=== PATIENT | female | born 1985 | race Caucasian/White ===

== ENCOUNTER → 2016-03-24 | Outpatient (CLI) | payer BC ==
[~2016-03-24] MED LIST: PRENTAB26 PO
[2016-03-24 12:47] LABS: URINE APPEARANCE CLEAR (CLEAR); URINE BILIRUBIN NEG (NEG); URINE COLOR YELLOW; URINE NITRITE NEG (NEG); URINE PH 5.5 (4.5-7.5); URINE SPECIFIC GRAVITY 1.005 (1.000-1.030); UROBILINOGEN NEG (NEG)
[2016-03-24 12:56] LABS: MANUAL MICROSCOPIC REQUIRED? NO; REVIEW REQ? NO
== END | disposition home or self-care (01) ==
LOC: C.LABSPEC 12:02
PROVIDERS: ATTEND Obstetrics & Gynecology
DX: Z34.00 Encounter for supervision of normal first pregnancy, unspecified trimester (principal)

== ENCOUNTER → 2016-03-31 | Outpatient (CLI) | payer BC ==
[2016-03-31 18:01] LABS: BASO % 0.3 %; BASO ABS # 0.03 K/uL (0-0.2); COMPLETE YES; EOS % 0.9 %; IG% 0.3 %; LYMPH % 15.7 %; LYMPH ABS # 1.55 K/uL (1.2-3.4); MEAN CELL VOLUME 89.6 fL (80-100); MEAN CORPUSCULAR HEMOGLOBIN 30.8 pg (25-34); MEAN CORPUSCULAR HGB CONC 34.4 g/dl (32-36); MEAN PLATELET VOLUME 10.9 fL (7.4-10.4); MONO % 8.5 %; NEUT % 74.3 %; PLATELET COUNT 294 K/uL (130-400); RED BLOOD COUNT 4.02 M/uL (4.2-5.4); WHITE BLOOD COUNT 9.85 K/uL (4.8-10.8)
== END | disposition home or self-care (01) ==
LOC: C.LAB1850 16:18
PROVIDERS: ATTEND Obstetrics & Gynecology
DX: Z34.01 Encounter for supervision of normal first pregnancy, first trimester (principal)

== ENCOUNTER → 2016-03-31 | Outpatient (CLI) | payer BC ==
[2016-04-04 01:35] LABS: CHLAMYDIA TRACH RNA*** NOT DETECTED (NOT DETECTED); GC (NEIS GONORRHOEAE)RNA** NOT DETECTED (NOT DETECTED)
== END | disposition home or self-care (01) ==
LOC: C.LABSPEC 17:59
PROVIDERS: ATTEND Obstetrics & Gynecology
DX: Z34.01 Encounter for supervision of normal first pregnancy, first trimester (principal)

== ENCOUNTER → 2016-05-26 | Outpatient (CLI) | payer BC ==
[2016-05-26 16:57] LABS: GTGD 50 Grams
== END | disposition home or self-care (01) ==
LOC: C.LAB1850 14:41
PROVIDERS: ATTEND Obstetrics & Gynecology
DX: Z34.02 Encounter for supervision of normal first pregnancy, second trimester (principal)

== ENCOUNTER → 2016-08-18 | Outpatient (CLI) | payer BC ==
[2016-08-18 17:25] LABS: HEMATOCRIT 33.5 % (37-47)
[2016-08-18 18:13] LABS: GTGD 50 Grams
[2016-08-18 18:14] LABS: URINE APPEARANCE CLEAR (CLEAR); URINE BILIRUBIN NEG (NEG); URINE COLOR YELLOW; URINE NITRITE NEG (NEG); URINE PH 6.5 (4.5-7.5); URINE SPECIFIC GRAVITY 1.007 (1.000-1.030); UROBILINOGEN NEG (NEG)
[2016-08-18 18:16] LABS: MANUAL MICROSCOPIC REQUIRED? NO; REVIEW REQ? YES
[2016-08-18 18:27] LABS: URINE EPITHELIAL CELL AUTO 0-5 /lpf (0-5)
== END | disposition home or self-care (01) ==
LOC: C.LAB1850 15:49
PROVIDERS: ATTEND Obstetrics & Gynecology
DX: Z34.03 Encounter for supervision of normal first pregnancy, third trimester (principal)

== ENCOUNTER → 2016-08-25 | Outpatient (CLI) | payer BC | END | disposition home or self-care (01) | LOC: C.LAB1850 07:06 | PROVIDERS: ATTEND Obstetrics & Gynecology | DX: O28.1 Abnormal biochemical finding on antenatal screening of mother (principal) ==

== ENCOUNTER → 2016-10-13 | Outpatient (CLI) | payer BC | END | disposition home or self-care (01) | LOC: C.LABSPEC 17:45 | PROVIDERS: ATTEND Obstetrics & Gynecology | DX: Z34.03 Encounter for supervision of normal first pregnancy, third trimester (principal) ==

== ENCOUNTER 2016-10-26 12:39 | Inpatient (IN) | payer BC ==
[~2016-10-26] VITALS: Ht 175.3 cm; Wt 96.0 kg
[2016-10-26] MEDS ORDERED: LACTATED RINGER'S 1000ML 1,000 ML IV PRN (13:12)
[2016-10-26] MEDS ORDERED: PRENTAB26 PO (13:27)
[2016-10-26 13:34] VITALS: Ht 175.3 cm; Wt 96.0 kg
[2016-10-26 14:06] LABS: HEMATOCRIT 35.9 % (37-47); MEAN CELL VOLUME 88.2 fL (80-100); MEAN CORPUSCULAR HEMOGLOBIN 30.5 pg (25-34); MEAN CORPUSCULAR HGB CONC 34.5 g/dl (32-36); MEAN PLATELET VOLUME 11.4 fL (7.4-10.4); PLATELET COUNT 202 K/uL (130-400); RED BLOOD COUNT 4.07 M/uL (4.2-5.4); WHITE BLOOD COUNT 8.92 K/uL (4.8-10.8)
[2016-10-26] MEDS ORDERED: LACTATED RINGER'S 1000ML 500 ML IV PRN ×2 (15:41→19:00)
[2016-10-26] MEDS ORDERED: OXYTOCIN 30 UNITS/500ML NSS IV PRN ×2 (15:45→22:45)
[2016-10-26] MEDS: LACTATED RINGER'S 1000ML 1,000 ML IV SCH ×2 (16:09→18:30)
[2016-10-26] MEDS ORDERED: EpHEDrine SULFATE INJ 50 MG/ML AMP ONE (17:54)
[2016-10-26] MEDS ORDERED: BUPIVACAINE 0.25% 30 ML VIAL ONE (17:54)
[2016-10-26] MEDS ORDERED: FENTANYL 2MCG/ML ROPIV 1.25MG/ML 100ML BAG EPI ONE (17:55)
[2016-10-26] MEDS ORDERED: FENTANYL CITRATE INJ 50 MCG/1 ML 2 ML VIAL ONE (17:56)
[2016-10-26] MEDS ORDERED: FENTANYL 2MCG/ML ROPIV 1.25MG/ML 100ML BAG EPI PRN (19:00)
[2016-10-26] MEDS ORDERED: NALBUPHINE HCL INJ 10 MG/ML AMP IV PRN (19:00)
[2016-10-26] MEDS ORDERED: ONDANSETRON INJ 2 MG/ML 2 ML VIAL IV PRN (19:00)
[2016-10-26] MEDS ORDERED: EpHEDrine SULFATE INJ 50 MG/ML AMP IV PRN (19:00)
[2016-10-26] MEDS ORDERED: NALOXONE HCL INJ 1 MG in SODIUM CHLORIDE 0.9% 1000ML 1,000 ML IV PRN (19:00)
[2016-10-26] MEDS ORDERED: DiphenhydrAMINE HCL 50 MG/ML VIAL IV PRN (19:00)
[2016-10-26] MEDS ORDERED: NALOXONE HCL INJ 0.4 MG/1 ML VIAL/CARP IV PRN (19:00)
[2016-10-26] MEDS ORDERED: ACETAMINOPHEN 325 MG TAB PO PRN (22:45)
[2016-10-26] MEDS ORDERED: HYDROCORTISONE ACETATE 25 MG SUPP PR PRN (22:45)
[2016-10-26] MEDS ORDERED: BENZOCAINE 20% AER SPR 82.5 GM CAN EXT PRN (22:45)
[2016-10-26] MEDS ORDERED: ACETAMINOPHEN/CODEINE 300/30MG TAB PO PRN ×2 (22:45)
[2016-10-26] MEDS ORDERED: LANOLIN OINT EXT PRN ×2 (22:45)
[2016-10-26] MEDS ORDERED: OXYCODONE/ACETAMINOPHEN 5-325 TAB PO PRN (22:45)
[2016-10-26] MEDS ORDERED: DIPHTHERIA/TETANUS/PERTUSSIS 0.5 ML SYR/VIAL IM. ONE (22:45)
[2016-10-26] MEDS ORDERED: SUPERCREAM 0.870 % 15GM JAR EXT PRN (22:45)
--- NOTE | 2016-10-27 00:14 | DELIVERY SUMMARY ---
DATE OF OPERATION: 10/26/2016 DELIVERY NOTE: Kisha arrived to labor and delivery at term with PROM. She was group B Strep negative. She did require Pitocin augmentation and then rapidly progressed to 4 cm dilated. Requested epidural. heart rate was category 1. She then rapidly progressed to fully dilated, pushed for less than an hour and delivered a baby in left occiput anterior position. Clear fluid with a body cord but was easily delivered. Mouth and nares were suctioned with bulb. No excessive force used. Live baby was male infant. Cord clamped. Cord blood collected per kit, and placenta removed with gentle traction. IV Pitocin started. Second-degree tear repaired with 3-0 Vicryl. Sponge and instrument counts correct. Estimated blood loss 250 mL. I attest to the content of the Intraoperative Record and any orders documented therein. Any exception s are noted below.
[2016-10-27 01:05] VITALS: BP 126/86; PULSE 102; TEMP 36.8
[2016-10-27 04:00] VITALS: BP 115/79; PULSE 76; TEMP 36.5
[2016-10-27] MEDS: IBUPROFEN 600 MG TAB PO PRN ×5 (04:00→21:31)
--- NOTE | 2016-10-27 06:06 | OB/GYN Progress Note ---
RN ADMISSIONS Progress Note Date of Service Oct 27, 2016. Subjective conversation w/ patient, physical exam, chart review, lab review Ambulation: limited ambulation Voiding: no voiding problems Diet Tolerance: Regular Diet Lochia: Moderate Feeding Type: Breast Feeding Pain: 6/10 pain Review of Systems Constitutional: No fever Respiratory: No shortness of breath Cardiac: No chest pain Abdomen: No nausea, No vomiting Female : No dysuria Objective Vital Signs Date Time Temp Pulse Resp B/P (MAP) Pulse Ox O2 Delivery O2 Flow Rate FiO2 10/27/16 04:00 36.5 76 18 115/79 (91) 10/27/16 01:05 36.8 102 18 126/86 (99) 10/27/16 01:05 Room Air Physical Exam General Appearance: WELL-APPEARING Respiratory/Chest: lungs clear, normal breath sounds, no respiratory distress Cardiovascular: regular rate, rhythm Abdomen: normal bowel sounds, non tender, soft Fundus: Firm, Relation to Umbilicus (3 FB below) Extremities: non-tender, no pedal edema Laboratory Results Last 24 Hours Test 10/26/16 13:25 10/27/16 04:44 White Blood Count 8.92 K/uL Red Blood Count 4.07 M/uL Hemoglobin 12.4 g/dL Hematocrit 35.9 % Mean Corpuscular Volume 88.2 fL Mean Corpuscular Hemoglobin 30.5 pg Mean Corpuscular Hemoglobin Concent 34.5 g/dl RDW Standard Deviation 45.6 fL RDW Coefficient of Variation 14.0 % Platelet Count 202 K/uL Mean Platelet Volume 11.4 fL Medications Current Inpatient Medications Medications (Trade) Dose Ordered Sig/Angelique Route Start Time Stop Time Status Last Admin Dose Admin Oxytocin (Pitocin IV) 30 units UD PRN IV 10/26/16 22:45 11/25/16 22:44 Benzocaine (Dermoplast Aero Spr) 1 appln PRN PRN EXT 10/26/16 22:45 11/25/16 22:44 Cocaine HCl (Supercream 0.870% Cr) BID PRN EXT 10/26/16 22:45 11/09/16 22:44 Hydrocortisone Acetate (Anusol Hc Supp) 25 mg BID PRN IL 10/26/16 22:45 11/25/16 22:44 Lanolin (Lanolin Oint) PRN PRN EXT 10/26/16 22:45 11/25/16 22:44 Prenat Multivit/ Dry Pan Operator/Iron/Folic Ac ( Vitamin Tab) 1 tab DAILY PO 10/27/16 08:00 11/26/16 07:59 Ibuprofen (Motrin Tab) 600 mg Q4H PRN PO 10/26/16 22:45 11/25/16 22:44 10/27/16 04:00 600 MG Acetaminophen (Tylenol Tab) 650 mg Q6H PRN PO 10/26/16 22:45 11/25/16 22:44 Acetaminophen/ Codeine Phosphate (Tylenol w/ Codeine #3 Tab) 1 tab Q4H PRN PO 10/26/16 22:45 11/25/16 22:44 Acetaminophen/ Codeine Phosphate (Tylenol w/ Codeine #3 Tab) 2 tab Q4H PRN PO 10/26/16 22:45 11/25/16 22:44 Bisacodyl (Dulcolax Tab) 5 mg 20 PO 10/27/16 20:00 10/27/16 20:01 Bisacodyl (Dulcolax Supp) 10 mg DAILY PRN IL 10/28/16 07:00 Docusate Sodium (coLACE CAP) 100 mg BID PO 10/27/16 08:00 11/26/16 07:59 Assessment and Plan Post- Day Number: 1 Continue Routine Care: A/P: This is a 30 y/o female, , s/p normal vaginal delivery after PROM. She is ambulating and clinically stable. Plan: - Vitals signs are reviewed and WNL (Tmax 36.5) - Last Hgb is12.4. This Am pending - Blood type A+, GBS neg, Rubella Immune - Routine care - Encourage ambulation, monitor and control pain with medication as needed, continue with regular diet as tolerated and monitor lochia - Stool softeners and sitz bath recommended - Encourage breast feeding and educate about breast feeding Resident Physician Supervision Note: I interviewed and examined the patient. Discussed with Dr. Gaston and agree with findings and plan as documented in the note. Any exceptions or clarifications are listed here: [None] Documented By: Blane Porras Resident Involvement: Resident Care Provided Care Provided: OB Delivery
--- NOTE | 2016-10-27 07:23 | Discharge Instructions ---
Discharge Instructions Date of Service Oct 27, 2016. Admission Reason for Admission: R/O Ruptured Membranes Discharge Discharge Diagnosis / Problem: after delivery Discharge Goals Goal(s): Routine recovery after delivery Medications Continue Dispensed Medications: supercream, dermaplast, tucks, lansinoh Activity Recommendations Activity Limitations: per Instructions/Follow-up section . Instructions / Follow-Up Instructions / Follow-Up ACTIVITY RECOMMENDATIONS: * Gradual return to full activity over the next 2-3 weeks. * No lifting - nothing heavier than baby over the next 2-3 weeks. * Do not engage in vigorous exercise, sexual activity or sports until cleared by your physician. * Do not drive or operate any motorized equipment until cleared by your physician. * You may shower/bathe daily. MEDICATIONS: For discomfort or pain, you may use Acetaminophen (Tylenol), Ibuprofen (Advil), or Naproxen (Aleve) following the package directions. For constipation you may use Colace following the package directions. BREAST CARE: If you are not breast feeding: * Wear a supportive bra 24 hours a day for one to two weeks. * Avoid stimulating your breasts and nipples as much as possible during the first few weeks after delivery. * When taking a shower, have the warm water hit your back, not breasts. * When your breasts feel full, apply ice packs. Usually three to four times a day helps ease the discomfort. * Take a mild pain medication (Tylenol / Motrin) when you are uncomfortable. If breast feeding: * Use breast milk to lubricate nipples. Lansinoh cream may be used for sore nipples. You do not need to remove cream prior to breast feeding. If using a different brand of cream, check the label for directions regarding removal of cream prior to nursing. * Wear a supportive bra. * If having problems with breasts or breast feeding, call a mining consultant or your health care provider. EPISIOTOMY CARE: After delivery, if you have an episiotomy (stitches), the following steps will ease discomfort and aid healing. * For the first 24 hours after delivery, place ice packs next to your episiotomy to help reduce swelling. * After the first 24 hour-period, sitz baths, either portable or in the tub, are suggested. A shower with a shower arm sprayed over the episiotomy may be comforting. * Denice care should be done after each voiding and bowel movement. Squirt warm water from a plastic bottle over the perineum (region of the body between the anus and urinary opening) and pat dry. * Use Dermoplast to ease discomfort. Shake container. [place] directly over the episiotomy. Place a Tucks on a clean sanitary pad next to your episiotomy. SPECIAL CARE INSTRUCTIONS: When you are discharged from the hospital, it is important for you to follow the instructions listed below: * During the first week at home, you should be able to care for yourself and your baby. In addition, the usual light household activities are encouraged. * Limit your activities to the way you feel. Do not try to clean the house or move furniture. Be sensible. * If you actively engage in sports and have done so up until the time of your delivery, you may resume these activities as soon as you feel able. This may take up to one month or even longer. Use good judgment. * Continue to take your vitamins for at least six weeks after the of your baby. * Your diet need not be limited unless you were on a special diet before your delivery. Breast-feeding mothers need around 2500 calories per day and at least 64-80 ounces of fluid per day (8 to 10 glasses). * You should eat foods from the four major food groups. Crash diets or fad diets are to be avoided. Eating lean meats, fresh fruits and vegetables, low-fat dairy products, high fiber foods and a regular exercise program, will help you get back to your pre- weight without putting your health at risk. * Constipation is sometimes a problem after delivery. Take a mild laxative as needed. If breast feeding, Milk of Magnesia is acceptable to use. You may use a suppository or Fleets enema if no episiotomy. * A daily shower or tub bath is suggested. Be sure to thoroughly and gently dry the perineum. * A bloody vaginal discharge will usually continue until around four weeks post . A small amount of bleeding may continue for as long as six weeks. Vaginal discharge changes from the bright red bleeding after delivery to pink then brownish and finally yellowish-pink before becoming white and disappearing. * Bleeding may increase with activity. Your first period may come in 4-8 weeks. If you are breast feeding, your period may be delayed even longer. * [place] (sex) can begin whenever both you and your partner feel comfortable and do not have any form of genital infection. It is recommended that you wait at least six weeks for internal and external healing to occur. If you have questions, please talk to your health care practitioner. A condom should be used to prevent infection and . * Foreplay, gentle intercourse and lubrication is very important the first several times to prevent pain. A water-based lubricant such as K-Y jelly or Astroglide may be used. * If you have RH negative blood and your baby is RH positive, you will receive RHOGAM by injection prior to discharge. The nurse will give you a card to keep with you that has the date and place that you received RHOGAM after delivery. * During your care, you had a Rubella screen done to check for the presence of rubella antibodies in your blood. If your test was negative, you will receive a Rubella vaccine prior to discharge. This vaccine may cause a fever, soreness at the injection site and flu-like symptoms. If these symptoms persist, notify your health care practitioner. is not advised for one month after a Rubella vaccine. * Verbalizes understanding of car seat law as reviewed with patient nursing. * Car Seat hand-out given and reviewed with patient by nursing. * Shaken baby information reviewed with patient by nursing. Call you doctor if: * Heavy bleeding (saturating several pads an hour) or passing clots the size of your fist. * A fever >101 degrees F (38.3 degrees C) on two occasions four hours apart and /or chills. * Unusual pain in the pelvic or vaginal areas. * "Baby Blues" lasting longer than two weeks. If you have any questions or concerns, call your health care practitioner at . FOLLOW UP VISIT: * Please call the office at to schedule a 6 week examination. It is important you keep this appointment. It is important for you to make arrangements for either yearly or twice yearly check-ups thereafter. Current Hospital Diet Patient's current hospital diet: Regular OB Diet Discharge Diet Recommended Diet: Regular Diet Pending Studies Studies pending at discharge: no Medical Emergencies . Who to Call and When: Medical Emergencies: If at any time you feel your situation is an emergency, please call [phone] immediately. . Non-Emergent Contact Non-Emergency issues call your: Cloth Mender . . "Provider Documentation" section prepared by Cristi Gaston. . VTE Core Measure Inpt VTE Proph given/why not?: Treatment not indicated
[2016-10-27 08:00] VITALS: BP 124/82; PULSE 71; TEMP 36.5
[2016-10-27] MEDS: DOCUSATE SODIUM 100 MG CAP PO SCH ×2 (08:21→19:59)
[2016-10-27] MEDS: PRENATAL VITAMIN TAB PO SCH (08:21)
--- NOTE | 2016-10-27 09:16 | Anesthesia Procedure Note ---
Anesthesia Epidural Removal Nt Date & Time Oct 27, 2016 at 09:16 Vital Signs Pain Intensity: 5.0 Vital Signs Past 12 Hours Date Time Temp Pulse Resp B/P (MAP) Pulse Ox O2 Delivery O2 Flow Rate FiO2 10/27/16 04:00 36.5 76 18 115/79 (91) 10/27/16 01:05 36.8 102 18 126/86 (99) 10/27/16 01:05 Room Air Notes Mental Status: alert / awake / arousable, participated in evaluation Nausea / Vomiting: adequately controlled Pain: adequately controlled Airway Patency, RR, SpO2: stable & adequate BP & HR: stable & adequate Hydration State: stable & adequate Neuraxial Anesthesia: was administered Anesthetic Complications: no major complications apparent, pt satisfied with anesthetic care Epidural: removed without complications, with tip intact
[2016-10-27 12:00] VITALS: BP 119/78; PULSE 80; TEMP 36.9
[2016-10-27 16:50] VITALS: BP 113/79; PULSE 73; TEMP 36.4
[2016-10-27 20:00] VITALS: BP 107/71; PULSE 86; TEMP 36.6
[2016-10-27] MEDS ORDERED: BISACODYL 5 MG TABEC PO SCH (20:00)
[2016-10-28 00:40] VITALS: BP 114/76; PULSE 75; TEMP 36.8
[2016-10-28] MEDS: IBUPROFEN 600 MG TAB PO PRN (05:31)
[2016-10-28] MEDS ORDERED: BISACODYL 10 MG SUPP PR PRN (07:00)
[2016-10-28] MEDS: DOCUSATE SODIUM 100 MG CAP PO SCH (07:47)
[2016-10-28] MEDS: PRENATAL VITAMIN TAB PO SCH (07:47)
--- NOTE | 2016-10-28 08:21 | Progress Note ---
Subjective Oct 28, 2016. Subjective conversation w/ patient, physical exam, lab review Ambulation: ambulating normally Voiding: no voiding problems Passing Gas: Yes Diet Tolerance: Regular Diet Lochia: Small Feeding Type: Breast Feeding Objective Vital Signs Date Time Temp Pulse Resp B/P (MAP) Pulse Ox O2 Delivery O2 Flow Rate FiO2 10/28/16 00:40 Room Air 10/28/16 00:40 36.8 75 20 114/76 (89) Room Air 10/27/16 20:00 36.6 86 20 107/71 (83) Room Air 10/27/16 16:50 Room Air 10/27/16 16:50 36.4 73 18 113/79 (90) Room Air 10/27/16 12:00 36.9 80 18 119/78 (92) Room Air Physical Exam General Appearance: WELL-APPEARING, WD/WN, NO APPARENT DISTRESS Abdomen: non tender, soft Fundus: Firm, Non-Tender, Relation to Umbilicus (at u) Extremities: non-tender, normal inspection, no pedal edema Laboratory Results Last 24 Hours Test 10/27/16 09:05 Hemoglobin 10.5 g/dL Hematocrit 31.0 % Assessment and Plan Post- Day#: 2 Continue Routine Care: Doing well. Plan d/c. Instructions given.
[2016-10-28 08:46] VITALS: BP 114/77; PULSE 73; TEMP 36.6; O2SAT 97
[2016-10-28 11:00] VITALS: BP_DIAS 77; PULSE 73; TEMP 36.6
== END 2016-10-28 11:20 | disposition home or self-care (01) | DRG 775 ==
LOC: C.OPB 12:39 → C.LD 12:42 → C.OPB 13:14 → C.LD 13:14 → C.OBG 10-27 01:07 → EDSTATUS 11-04 12:37
PROVIDERS: ADMIT Obstetrics & Gynecology; ATTEND Obstetrics & Gynecology
PROC: 10E0XZZ Delivery of Products of Conception, External Approach (ICD-10-PCS; principal; 2016-10-26)
PROC: 0KQM0ZZ Repair Perineum Muscle, Open Approach (ICD-10-PCS; principal; 2016-10-26)
DX: O70.1 Second degree perineal laceration during delivery (principal); Z37.0 Single live birth; Z3A.38 38 weeks gestation of pregnancy; O42.92 Full-term premature rupture of membranes, unspecified as to length of time between rupture and onset of labor

== ENCOUNTER 2021-03-31 13:07 | Inpatient (IN) ==
--- NOTE | 2021-03-30 12:47 | Anesthesiology Consultation ---
Date of Service March 30, 2021 Assessment & Plan (1) Encounter for pre-operative examination: Chart Review Chart Review: Acceptable Risk for Surgery and Patient NOT seen in Pre Admission Testing Consults Requested none History Surgery Operation Date: 04/04/21 07:30 Proposed Procedures p Section in LD (Delivery of Baby through Abdominal Incision) - Cindy Olguin DO Height/Weight Height: 5 ft 9 in Weight: 106.594 kg Allergies Allergy/AdvReac Type Severity Reaction Status Date / Time erythromycin base Allergy Mild Nausea and Verified 03/30/21 12:13 vomiting Penicillins Allergy Mild rash Verified 03/30/21 12:13 Medications Home Medications Medication Instructions Recorded Confirmed Last Taken prenat.vits,sp,iwq-rnqf-pengy 1 tab PO QAM 01/22/20 03/30/21 Unknown acetone (urine) test (Ketone Urine #50 ea 12/10/20 03/25/21 Unknown Test) blood sugar diagnostic (OneTouch #150 ea 12/10/20 03/25/21 Unknown Verio test strips) blood-glucose meter (OneTouch #1 ea 12/10/20 03/25/21 Unknown Verio Flex meter) lancets 33 gauge (OneTouch Delica #150 ea 12/10/20 03/25/21 Unknown Plus Lancet) pen needle, diabetic 32 gauge x #100 ea 12/17/20 03/25/21 Unknown 5/32" (BD Ultra-Fine Fallon Pen Needle) breast pump #1 ea 03/07/21 03/25/21 Unknown insulin NPH isoph U-100 human 100 60 unit SUBCUT QPM 03/30/21 03/30/21 Unknown unit/mL (3 mL) subcutaneous pen (Novolin N Flexpen) valacyclovir 500 mg tablet 500 mg PO BID PRN 03/30/21 03/30/21 Unknown Past Medical History Medical History Gestational diabetes premature rupture of membranes (PPROM) with unknown onset of labor C section for breech presentation. Past Family History Family History Uncle Acute cerebellar ataxia Other Breast cancer Dyslipidemia Heart disease Past Surgical History Surgical History S/P wisdom tooth extraction Social History Smoking Status: Never smoker Do You Dip or Chew Tobacco: No Hx Alcohol Use: Yes Alcohol type: wine alcohol intake frequency: a few times a week Alcohol Intake Frequency Comment: NON Hx Substance Use: No Testing Laboratory Results Laboratory Tests 01/21/21 13:59 Hgb 12.1 Hct 36.7 L
--- NOTE | 2021-03-31 13:44 | History & Physical Report ---
Date of Service March 31, 2021 Assessment & Plan (1) Insulin controlled gestational diabetes mellitus (GDM) during : (2) Breech presentation: (3) SROM (spontaneous rupture of membranes): Plan: 35 y/o at 38 5/7 wga presenting w/ SROM VSS Fetus cat 1 SROM - confirmed, as well as breech presentation by BSUS. Will proceed with CS. Discussed indications, risks, benefits, alternatives with risks including infection, bleeding, injury to adjacent structures (bowel, bladder, ureters, blood vessels, nerves, baby), possible need for blood transfusion and/or life saving hysterectomy, VTE. Consent reviewed in detail w/ pt and signed after all questions answered to her satisfaction. Will plan for ancef and azithro for antibx ppx A2GDM - initial BG wnl GBS neg Admission and Anticipated Discharge Date Admission Date: March 31, 2021 History of Present Illness Chief Complaint: SROM Primary Care Provider: Marshall Montalvo MD 35 y/o at 38 5/7 wga w/ KIANNA 04/09 by LMP who presents w/ c/o LOF beginning at 1130. Had big gush while on the phone with a patient, soaked 2 diapers in a few hours. +FM and some ctx after, denies VB PNI: Breech A2GDM - 03/15 EFW 91%, currently on 60u NPH AMA Past DEVELOPMENT EDITOR Hx: G1 2016 38 wks G2 2019 SAB G3 current Menarche 10, q28d cycles 01/2020 neg cotest Denies hx STIs Allergies Allergy/AdvReac Type Severity Reaction Status Date / Time erythromycin base Allergy Mild Nausea and Verified 03/30/21 12:13 vomiting Penicillins Allergy Mild rash Verified 03/30/21 12:13 Home Medications Medication Instructions Recorded Confirmed Type prenat.vits,sp,yjd-vnri-zqptz 1 tab PO QAM 01/22/20 03/30/21 History acetone (urine) test (Ketone Urine #50 ea 12/10/20 03/25/21 Rx Test) blood sugar diagnostic (OneTouch #150 ea 12/10/20 03/25/21 Rx Verio test strips) blood-glucose meter (OneTouch #1 ea 12/10/20 03/25/21 Rx Verio Flex meter) lancets 33 gauge (OneTouch Delica #150 ea 12/10/20 03/25/21 Rx Plus Lancet) pen needle, diabetic 32 gauge x #100 ea 12/17/20 03/25/21 Rx 5/32" (BD Ultra-Fine Fallon Pen Needle) breast pump #1 ea 03/07/21 03/25/21 Rx insulin NPH isoph U-100 human 100 60 unit SUBCUT QPM 03/30/21 03/30/21 History unit/mL (3 mL) subcutaneous pen (Novolin N Flexpen) valacyclovir 500 mg tablet 500 mg PO BID PRN 03/30/21 03/30/21 History Patient History Medical History Gestational diabetes premature rupture of membranes (PPROM) with unknown onset of labor Surgical History S/P wisdom tooth extraction Family History Uncle Acute cerebellar ataxia Other Breast cancer Dyslipidemia Heart disease Social History (Updated 03/30/21 @ 12:28 by Norma Brownlee RN) Smoking Status: Never smoker Second Hand Exposure: No; Do You Dip or Chew Tobacco: No; Hx Alcohol Use: Yes Alcohol type: wine Hx Substance Use: No Preferred Language: Hungarian Communication Ability: Effective Fur Nailer Required: No Beliefs That Will Affect Care: None marital status: marital status details: Mitchell (35) [phone] Current Living Situation: Spouse and Family Current Living Situation Comment: lives with spouse, son no pets. current occupational status: employed current occupation: Therapist at [employer] Other Information That Helps Us Care for You: No Feels Safe at Home: Yes Safety Concerns: Feels Safe At This Time Assistive Devices: None Physical Exam Constitutional: WD/WN, vitals as above Respiratory: normal respiratory effort; no respiratory distress and no labored breathing Genitourinary: OB Exam Abdomen: + breech (confirmed by US) Manual OB Exam: + cervical dilation 2 cm, + cervical effacement 50%, + station -2 and + amniotic fluid (+nitrazine, pooling, ferning) clear OB Exam Monitor Tracing: + external FHT monitor used, + external uterine monitor used (q7) and + category I (125/mod/+accel/-decel) Results & Data ([facility]) Vital Signs (Past 12 Hours) Vital Signs Temp Pulse Resp BP 03/31/21 13:17 98.4 F 97 H 18 120/78 Laboratory Results OB Labs: Blood Type A Positive 09/03/20 Antibody Screen NEGATIVE 09/03/20 Hemoglobin 12.1 g/dL (12.0-16.0) 01/21/21 Hematocrit 36.7 % (37-47) L 01/21/21 Mean Corpuscular Volume 91.8 fL (80-100) 09/03/20 Platelet Count 327 K/uL (130-400) 09/03/20 Rubella IgG Antibody Immune (Immune) 09/03/20 Rapid Plasma Reagin Nonreactive (Nonreactive) 09/03/20 Hepatitis B Surface Antigen Neg (Neg) 09/03/20 HIV (1&2) Ab and P24 Ag, 4th Gener Neg (Neg) 09/03/20 Glucose 1 Hour 50 gm Load 144 mg/dl (70-130) H 10/29/20 Maternal Serum Alpha Fetoprotein 23.0 ng/mL 10/29/20 OB Optional Labs: Chlamydia trachomatis RNA NOT DETECTED (NOT DETECTED) 09/03/20 Neisseria gonorrhoeae RNA NOT DETECTED (NOT DETECTED) 09/03/20 Alpha Fetoprotein Triple Screen SEE NOTE 10/29/20 low risk cfdna neg cf/sma neg afp gbs neg Diagnostic Findings 03/15 EFW 91%, ant plac Coding Level of Care Code None Diagnoses Insulin controlled gestational diabetes mellitus (GDM) during O24.414 Breech presentation O32.1XX0 SROM (spontaneous rupture of membranes)
[2021-03-31] MEDS ORDERED: LACTATED RINGER'S 1,000 ML IV SCH ×2 (13:45→17:53)
[2021-03-31] MEDS ORDERED: AZITHROMYCIN 500 MG in DEXTROSE 5% 250 ML IV STA (13:53)
[2021-03-31] MEDS ORDERED: ceFAZolin 2000MG 2,000 MG/15 ML SYR IV ONE (14:00)
[2021-03-31 14:04] LABS: Hematocrit (blood only) 38.4 % (37-47); Mean Corpuscular Hemoglobin 30.2 pg (25-34); Mean Corpuscular Hgb Conc 33.9 g/dL (32-36); Mean Corpuscular Volume 89.3 fL (80-100); Mean Platelet Volume 11.5 fL (7.4-10.4); Platelet Count 203 K/uL (130-400); RDW Coefficient of Variation 14.3 % (11.5-14.5); RDW Standard Deviation 46.7 fL (36.4-46.3); White Blood Count 8.82 K/uL (4.8-10.8)
--- NOTE | 2021-03-31 14:39 | Anesthesiology Consultation ---
Date of Service March 31, 2021 Assessment & Plan Chart Review Chart Review: Acceptable Risk for Surgery and Patient NOT seen in Pre Admission Testing Consults Requested none ASA ASA2 Proposed Anesthesia Anesthesia Type: Spinal (+intrathecal narcotics) Risk / Benefits Reviewed With: PT / POA / Parent / Guardian, Accepts Plan and Informed Consent Obtained History Surgery Operation Date: 03/31/21 14:30 Proposed Procedures p Section in LD - Sofi Red MD Operation Date: 04/04/21 07:30 Proposed Procedures p Section in LD (Delivery of Baby through Abdominal Incision) - Cindy Olguin DO Height/Weight Height: 5 ft 9 in Weight: 106.594 kg Allergies Allergy/AdvReac Type Severity Reaction Status Date / Time erythromycin base Allergy Mild Nausea and Verified 03/30/21 12:13 vomiting Penicillins Allergy Mild rash Verified 03/30/21 12:13 Medications Home Medications Medication Instructions Recorded Confirmed Last Taken prenat.vits,sp,phw-tdqb-yrvor 1 tab PO QAM 01/22/20 03/30/21 Unknown acetone (urine) test (Ketone Urine #50 ea 12/10/20 03/25/21 Unknown Test) blood sugar diagnostic (OneTouch #150 ea 12/10/20 03/25/21 Unknown Verio test strips) blood-glucose meter (OneTouch #1 ea 12/10/20 03/25/21 Unknown Verio Flex meter) lancets 33 gauge (OneTouch Delica #150 ea 12/10/20 03/25/21 Unknown Plus Lancet) pen needle, diabetic 32 gauge x #100 ea 12/17/20 03/25/21 Unknown 5/32" (BD Ultra-Fine Fallon Pen Needle) breast pump #1 ea 03/07/21 03/25/21 Unknown insulin NPH isoph U-100 human 100 60 unit SUBCUT QPM 03/30/21 03/30/21 Unknown unit/mL (3 mL) subcutaneous pen (Novolin N Flexpen) valacyclovir 500 mg tablet 500 mg PO BID PRN 03/30/21 03/30/21 Unknown Active Medications Generic Name Dose Route Start Last Admin Trade Name Freq PRN Reason Stop Dose Admin Azithromycin 500 mg/ Dextrose 255 mls @ 127.5 mls/hr 03/31/21 13:53 03/31/21 14:07 IV 03/31/21 15:52 127.5 mls/hr NOW STA Administration Lactated Ringer's 1,000 mls @ 999 mls/hr 03/31/21 13:45 03/31/21 14:08 Lr IV 03/31/21 14:45 999 mls/hr .Q1H1M VERONIKA Administration Past Medical History Medical History Gestational diabetes premature rupture of membranes (PPROM) with unknown onset of labor Exercise / Class Metabolic Activity II 4-5 Yardwork/Stairs/Walk up hill Past Family History Family History Uncle Acute cerebellar ataxia Other Breast cancer Dyslipidemia Heart disease Past Surgical History Surgical History S/P wisdom tooth extraction Past Anesthesia History No Hx of Anesthesia Complications and No Family Hx of Anesthesia Complications History of PONV No Hx of PONV and No Hx of Motion Sickness Social History Smoking Status: Never smoker Do You Dip or Chew Tobacco: No Hx Alcohol Use: Yes Alcohol type: wine alcohol intake frequency: a few times a week Alcohol Intake Frequency Comment: NON Hx Substance Use: No Physical Exam Vital Signs Last Vital Signs Temp 36.9 C 03/31/21 13:17 Pulse 97 H 03/31/21 13:17 Resp 18 03/31/21 13:17 BP 120/78 03/31/21 13:17 ENMT Mouth: no dentition abnormality Thyromental Distance: > or= 3.5 Finger Breadths Mallampati Class: II Neck normal visual inspection Respiratory normal respiratory effort Auscultation: lungs clear to auscultation bilaterally Cardiovascular Rate/Rhythm: regular rate and regular rhythm Psychiatric Orientation: alert Testing Laboratory Results 03/31/21 13:50 03/31/21 13:56 POC Glucose 78
[2021-03-31] MEDS ORDERED: CITRIC ACID/SODIUM CITRATE 15 ML UDC ONE (15:04)
[2021-03-31] MEDS ORDERED: MoRPHine SULFATE PF 1 MG/ML 10 ML AMP/VIAL ONE (15:08)
[2021-03-31] MEDS ORDERED: PHENYLEPHRINE 100MCG/ML 5ML SYR ONE (16:55)
[2021-03-31] MEDS ORDERED: OXYTOCIN 10 UNITS/ML 10ML VIAL ONE (16:55)
[2021-03-31] MEDS ORDERED: ONDANSETRON INJ 2 MG/ML 2 ML VIAL ONE ×2 (16:55)
[2021-03-31] MEDS ORDERED: KETOROLAC 30 MG/ML VIAL ONE (16:55)
--- NOTE | 2021-03-31 17:04 | Post Operative Brief Note ---
PG Immediate Post Op with CF Date of Surgery March 31, 2021 Pre & Post Diagnosis Operation Date: 03/31/21 14:30 Single intrauterine at 38 5/7, SROM, breech Operation Date: 04/04/21 07:30 Single intrauterine at 38 5/7, SROM, breech I identified the patient and participated in the time-out.: Yes Procedure Operation Date: 03/31/21 14:30 Actual Procedures p Primary Low Transverse Section in LD; Live male child at 1612 (Main OR #3)(Bilateral) - Sofi Red MD Operation Date: 04/04/21 07:30 <No data on this case meets the specified criteria> Surgeon Sofi Red MD Angle Bender MD Figueroa Estimated Blood Loss 700 Findings Consistent with Post-Op Diagnosis Normal appearing bilateral fallopian tubes and ovaries. Anterior uterus was wnl, there was a 2cm area of the posterior fundus where serosa appeared irritated/skimmed and bleeding. Made hemostatic with stitches. Viable male infant with APGARs of 9 and 9 at 1 and 5 minuts respectively. Fluids 1500cc crystalloid, UOP 300cc Specimens Specimen Description: A: Placenta-hold B: Cord blood Drains Zamora Catheter (Inserted after anesthesia,patent and draining clear yellow urine throughout entire procedure.) Anesthesia Type Spinal Complications none Disposition Accompanied Patient To Recovery: Yes Disposition: L&D
--- NOTE | 2021-03-31 17:30 | Anesthesiology Progress Note ---
Date of Service March 31, 2021 Anesthesia Post Procedure Vital Signs Vital Signs: Temp Pulse Resp BP 03/31/21 13:17 36.9 C 97 H 18 120/78 Transfer of Care Handoff Completed per policy Notes Mental Status: alert / awake / arousable Nausea / Vomiting: adequately controlled Pain: adequately controlled Airway Patency, RR, SpO2: stable & adequate BP & HR: stable & adequate Hydration State: stable & adequate Anesthetic Complications: no major complications apparent
--- NOTE | 2021-03-31 17:33 | Operative Report ---
PG Post Operative Report Pre & Post Diagnosis Operation Date: 03/31/21 14:30 Pre-Op Diagnosis: Single intrauterine at 38 5/7, SROM, breech, A2GDM Post-Op Diagnosis: Single intrauterine at 38 5/7, SROM, breech, A2GDM Operation Date: 04/04/21 07:30 <No data on this case meets the specified criteria> I identified the patient and participated in the time-out.: Yes Procedure Operation Date: 03/31/21 14:30 Actual Procedures p Primary Low Transverse Section in LD; Live male child at 1612 (Main OR #3)(Bilateral) - Sofi Red MD Operation Date: 04/04/21 07:30 <No data on this case meets the specified criteria> Surgeon Sofi Red MD Photography Professor MD Figueroa Estimated Blood Loss 700 Findings Consistent with Post-Op Diagnosis Normal appearing bilateral fallopian tubes and ovaries. Anterior uterus was wnl, there was a 2cm area of the posterior fundus where serosa appeared scr aped/bleeding - this was made hemostatic with stitches. Viable male infant with APGARs of 9 and 9 at 1 and 5 minutes respectively. Fluids 1500cc crystalloid, UOP 300cc Specimens A: Placenta-hold B: Cord blood Drains Zamora draining clear urine Anesthesia Type Spinal Complications none Disposition Accompanied Patient To Recovery: Yes Disposition: L&D Indications 35 y/o at 38 5/7 wga presented with spontaneous rupture of membranes and breech presentation. has otherwise been complicated by A2GDM. BG was normal on admission. Consent was reviewed and signed for above listed procedure Description of Procedure The patient was taken to the operating room after consents were ensured. The patient was properly identified. Spinal anesthesia was obtained without difficulty. The patient was placed in a dorsal supine position with left lateral tilt, then prepped and draped in normal sterile fashion. Surgical time out was performed. Antibiotics were given for prophylaxis. Anesthesia was tested to ensure adequate surgical levels. Pfannenstiel skin incision was performed and carried down to the underlying fascia with a knife. The fascia was then nicked in the midline and extended laterally with pickups and Garcia scissors. Superior portion of the fascia was grasped with Kochers x2 and elevated off the underlying rectus muscles using blunt dissection. Inferior portion of the fascia was then grasped with Mau clamps x2 and also elevated off the underlying muscles with blunt dissection. Midline was identified. The peritoneum was then entered and extended to provide adequate room for delivery of baby. The hand was inserted into the abdomen, uterus was noted to be clear of adhesions. Bladder blade was inserted, bladder flap was created in the usual fashion. A low transverse uterine incision was mad e in the uterus and extended bluntly in a superior to inferior fashion. breech was grasped and elevated through the hysterotomy in an atraumatic fashion. Fundal pressure applied and body delivered spontaneously to level of the scapula. Arms were swept atraumatically across the chest. head then delivered spontaneously. Nose and mouth were bulb suctioned on the surgical field. The cord was double clamped and cut, baby was handed off to awaiting pediatrics staff. Cord segment and blood were obtained. Placenta was then expressed from the uterus. The uterus was exteriorized. Several passes were made inside the uterus to remove the remaining membranes. Attention was then turned to the hysterotomy, which was then closed with a running locked suture of 0 Vicryl on a CTX needle. An imbricating layer was then performed using 0-Monocryl. There was noted to be good hemostasis. The posterior cul-de-sac was then inspected and cleaned of clot and debris. At this time there was the area of scraped serosa noted on posterior fundus that was made hemostatic using a running locked stitch. The hysterotomy was again inspected and noted to be hemostatic. The uterus was returned to the abdomen. The right and left pericolic gutters were cleaned of all clot and debris. The hysterotomy was again noted to be hemostatic. Space of Retzius was noted to be hemostatic. Karolyn was applied to the hysterotomy. The fascia was then closed with a running suture of 0 Vicryl on a CT1 needle. Subcutaneous tissue was copiously irrigated and noted to be hemostatic. Subcutaneous tissue was re-godwin roximated using 2-0 plain gut. The skin was then closed with a running suture of 3-0 Monocryl in a subcuticular fashion. At termination of the procedure, the fundal pressure was applied and a moderate amount of lochia was expressed. Pressure dressing was applied to the patient. She tolerated the procedure well. All sponge, needle, instrument counts were correct x 2. I attest to the content of the Intraoperative Record and any orders documented therein. Any exceptions are noted below. OB Procedure Charges 85673
[2021-03-31] MEDS ORDERED: NALOXONE HCL 0.4 MG/1 ML VIAL/CARP IV PRN (17:37)
[2021-03-31] MEDS ORDERED: ePHEDrine sulfate 50 MG/ML AMP IV PRN (17:37)
[2021-03-31] MEDS ORDERED: ONDANSETRON INJ 2 MG/ML 2 ML VIAL IV PRN (17:37)
[2021-03-31] MEDS ORDERED: MoRPHine SULFATE 2 MG/ML CARP IV PRN (17:37)
[2021-03-31] MEDS ORDERED: MEPERIDINE HCL 25 MG/ML CARP/VIAL IV PRN (17:37)
[2021-03-31] MEDS ORDERED: HYDROmorphone INJ 0.5 MG/0.5 ML SYR IV PRN (17:37)
[2021-03-31] MEDS ORDERED: LACTATED RINGER'S 500 ML IV PRN (17:37)
[2021-03-31] MEDS ORDERED: NALOXONE HCL 0.08 MG in SYRINGE 1.8 ML IV PRN (17:37)
[2021-03-31] MEDS ORDERED: NALBUPHINE HCL INJ 10 MG/ML AMP IV PRN (17:37)
[2021-03-31] MEDS ORDERED: diphenhydrAMINE 50 MG/ML VIAL IV PRN (17:37)
[2021-03-31] MEDS ORDERED: NALOXONE HCL 1 MG in SODIUM CHLORIDE 0.9% 1000ML 1,000 ML IV PRN (17:37)
[2021-03-31] MEDS ORDERED: MoRPHine SULFATE PF 1 MG/ML 10 ML AMP/VIAL INT SPINAL ONE (17:37)
[2021-03-31] MEDS ORDERED: PROMETHAZINE HCL 6.25 MG in SODIUM CHLORIDE 0.9% 50 ML IV PRN (17:37)
[2021-03-31] MEDS ORDERED: DC INTRASPINAL MORPHINE SCH (17:45)
[2021-03-31] MEDS ORDERED: NO NARCOTICS OR SEDATIVES SCH (17:45)
[2021-03-31] MEDS ORDERED: SODIUM CHLORIDE 0.9% 1000ML 1,000 ML IV SCH (17:45)
[2021-03-31] MEDS ORDERED: SENNA 8.6 MG TAB PO PRN (17:53)
[2021-03-31] MEDS ORDERED: MAGNESIUM HYDROXIDE SUSP 30 ML UDC PO PRN (17:53)
[2021-03-31] MEDS ORDERED: DIPHTHERIA/TETANUS/PERTUSSIS 0.5 ML SYR/VIAL IM ONE (17:53)
[2021-03-31] MEDS ORDERED: BENZOCAINE 20% AER SPR 82.5 GM CAN EXT PRN (17:53)
[2021-03-31] MEDS ORDERED: OXYTOCIN 20 UNITS in LACTATED RINGER'S 1,000 ML IV SCH (17:53)
[2021-03-31] MEDS ORDERED: HYDROCORTISONE ACETATE 25 MG SUPP PR PRN (17:53)
[2021-03-31] MEDS ORDERED: SUPERCREAM 0.870% 15 GM JAR EXT PRN (17:53)
[2021-03-31] MEDS ORDERED: ACETAMINOPHEN 1000 MG/100 ML IV IV PRN (18:49)
[2021-03-31] MEDS ORDERED: LACTATED RINGER'S 500 ML IV ONE (19:29)
[2021-03-31 19:51] LABS: Albumin Level 3.6 gm/dl (3.4-5.0); BUN Creatinine Ratio 18.9 (10-20); Bilirubin,Total 0.5 mg/dl (0.2-1.0); Calcium 8.7 mg/dl (8.5-10.1); Creatinine Clr Calc Pharmacy 190.8 ml/min; Est GFR (African American) 141.6 ml/min; Est GFR (Non-African American) 122.2 ml/min; Globulin 3.5 gm/dl (2.5-4.0); Potassium 3.9 mmol/L (3.5-5.1); Total Protein 7.1 gm/dl (6.0-8.3)
[2021-03-31 19:54] LABS: Hematocrit (blood only) 37.5 % (37-47); Hemoglobin 12.7 g/dL (12.0-16.0); Mean Corpuscular Hemoglobin 30.8 pg (25-34); Mean Corpuscular Volume 90.8 fL (80-100); Mean Platelet Volume 11.3 fL (7.4-10.4); Platelet Count 186 K/uL (130-400); RDW Coefficient of Variation 14.3 % (11.5-14.5); RDW Standard Deviation 47.6 fL (36.4-46.3); Red Blood Count 4.13 M/uL (4.2-5.4); White Blood Count 12.64 K/uL (4.8-10.8)
[2021-03-31 19:58] LABS: Mean Corpuscular Hgb Conc 33.9 g/dL (32-36)
[2021-03-31] MEDS: SIMETHICONE 80 MG CHEW PO SCH ×2 (20:56→21:45)
[2021-03-31] MEDS: DOCUSATE SODIUM 100 MG CAP PO SCH (21:45)
[2021-03-31] MEDS: KETOROLAC 30 MG/ML VIAL IV PRN (23:19)
[2021-04-01] MEDS ORDERED: CITRIC ACID/SODIUM CITRATE 15 ML UDC PO SCH (06:00)
[2021-04-01] MEDS: KETOROLAC 30 MG/ML VIAL IV PRN (06:24)
[2021-04-01 07:00] LABS: Basophils # (auto) 0.02 K/uL (0-0.2); Basophils % (auto) 0.2 %; Eosinophils # (auto) 0.07 K/uL (0-0.5); Eosinophils % (auto) 0.8 %; Hematocrit (blood only) 34.5 % (37-47); Hemoglobin 11.2 g/dL (12.0-16.0); Immature Granulocytes # (auto) 0.02 K/uL (0.00-0.02); Immature Granulocytes % (auto) 0.2 %; Lymphocytes # (auto) 1.34 K/uL (1.2-3.4); Lymphocytes % (auto) 15.2 %; Mean Corpuscular Hemoglobin 29.5 pg (25-34); Mean Corpuscular Hgb Conc 32.5 g/dL (32-36); Mean Corpuscular Volume 90.8 fL (80-100); Mean Platelet Volume 11.3 fL (7.4-10.4); Monocytes # (auto) 0.82 K/uL (0.11-0.59); Monocytes % (auto) 9.3 %; Neutrophils # (auto) 6.52 K/uL (1.4-6.5); Neutrophils % (auto) 74.3 %; Platelet Count 169 K/uL (130-400); RDW Coefficient of Variation 14.2 % (11.5-14.5); RDW Standard Deviation 47.2 fL (36.4-46.3); White Blood Count 8.79 K/uL (4.8-10.8)
--- NOTE | 2021-04-01 07:20 | Obstetrical Progress Note ---
Date of Service <Mary Ann Marti MD - Last Filed: 04/01/21 07:20> April 01, 2021 Assessment & Plan <Mary Ann Marti MD - Last Filed: 04/01/21 07:20> (1) Encounter for care and examination after delivery: POD 1: stable, routine postoperative management * observe on L&D floor today * patient voiding into Alexander catheter; remove later this morning * trial of ambulation * pain well controlled on analgesia * N.p.o. at present; advance diet as tolerated * breast feeding * reassess d/c readiness tomorrow <Sofi Red MD - Last Filed: 04/01/21 07:30> (1) Encounter for care and examination after delivery: Subjective <Mary Ann Marti MD - Last Filed: 04/01/21 07:20> Post Kisha is a 35-year-old who is POD 1 following for breech presentation, SROM at 38.5 WGA. She reports feeling well overall this morning. Minimal cramping pain well managed on analgesics. Voiding via Alexander catheter. Remains n.p.o and has yet to attempt ambulation. Currently . Review of Systems Denies fever, chills, sweats Denies shortness of breath, difficulty breathing, chest pain, palpitations, chest pressure. Denies breast pain. Denies dysuria. Denies headache or changes in vision. Physical Exam <Mary Ann Marti MD - Last Filed: 04/01/21 07:20> General: Alert, oriented. No acute distress. Cardiac: Regular rate and rhythm, no murmurs/rubs/gallops. Respiratory: Clear to auscultation bilaterally a/p, no wheezes/rales/rhonchi. No increased work of breathing. Symmetrical chest rise. No respiratory distress. Abdomen: Soft, nontender, nondistended. Bowel sounds present. Uterus: Uterine fundus firm, palpable 1 cm below umbilicus. Surgical scar clean and healing well. Lower Extremities: No lower extremity edema or swelling. No deep calf pain. Amrita's negative bilaterally. Results & Data ([facility]) <Mary Ann Marti MD - Last Filed: 04/01/21 07:20> Vital Signs (Past 12 Hours) Vital Signs Temp Pulse Pulse Resp BP BP Pulse Ox 04/01/21 06:23 20 99 04/01/21 05:45 18 97 04/01/21 04:25 18 97 04/01/21 03:03 37.3 C 72 18 120/72 97 04/01/21 02:04 18 96 04/01/21 01:02 20 99 04/01/21 00:50 20 100 03/31/21 23:10 36.7 C 73 18 123/78 100 03/31/21 22:15 20 99 03/31/21 21:45 37.0 C 66 20 130/81 99 03/31/21 20:10 36.3 C L 72 18 133/93 98 <Sofi Red MD - Last Filed: 04/01/21 07:30> Co-Signing Physician Notes Resident Physician Supervision Note: I interviewed and examined the patient. Discussed with Dr. Marti and agree with findings and plan as documented in the note. Any exceptions or clarifications are listed here: POD1 s/p pLTCS for breech/srom. Overnight had some PVCs, pt believes narcotic related because her whole family reacts poorly to narcotics. CBC, CMP were wnl, EKG showed sinus with occ PVCs. Since lsat night has not had any more feelings like it. VSS, exam benign and wnl. Dressing c/d/i, to be removed later as well as alexander. Continue routine pp care Documented By: Sofi Red MD Resident Activity Tracking <Mary Ann Marti MD - Last Filed: 04/01/21 07:20> Resident Involvement: Resident Care Provided Care Provided: OB Delivery
[2021-04-01] MEDS: DOCUSATE SODIUM 100 MG CAP PO SCH ×2 (07:56→20:38)
[2021-04-01] MEDS: SIMETHICONE 80 MG CHEW PO SCH ×4 (07:56→20:38)
[2021-04-01] MEDS: PRENATAL VITAMIN 1 TAB PO SCH (07:56)
[2021-04-01] MEDS: FERROUS SULFATE 325 MG TAB PO SCH (07:56)
[2021-04-01] MEDS ORDERED: diphenhydrAMINE Capsule 25 MG CAP PO PRN (11:38)
[2021-04-01] MEDS ORDERED: diphenhydrAMINE 50 MG/ML VIAL IV PRN (11:38)
[2021-04-01] MEDS ORDERED: ONDANSETRON INJ 2 MG/ML 2 ML VIAL IV PRN (11:38)
[2021-04-01] MEDS ORDERED: PROMETHAZINE HCL 25 MG in SODIUM CHLORIDE 0.9% 50 ML IV PRN (11:38)
[2021-04-01] MEDS ORDERED: KETOROLAC 30 MG/ML VIAL IV PRN (13:08)
[2021-04-01] MEDS ORDERED: oxyCODONE/ACETAMINOPHEN 5mg/325mg TAB PO PRN (13:08)
[2021-04-01] MEDS: IBUPROFEN 600 MG TAB PO PRN ×3 (13:43→22:51)
--- NOTE | 2021-04-01 18:43 | Electrocardiogram Report ---
Test Reason : Blood Pressure : / mmHG Vent. Rate : 077 BPM Atrial Rate : 065 BPM P-R Int : 172 ms QRS Dur : 084 ms QT Int : 416 ms P-R-T Axes : 069 049 042 degrees QTc Int : 470 ms Poor data quality, interpretation may be adversely affected Sinus rhythm with occasional Premature ventricular complexes Otherwise normal ECG No previous ECGs available Confirmed by Juan Reza ([id number]) on 04/01/2021 6:43:29 PM Referred By: Sofi Red Confirmed By:Juan Reza
[2021-04-01] MEDS ORDERED: bisacodyL 5 MG TABEC PO SCH (20:00)
[2021-04-02 06:52] LABS: Hematocrit (blood only) 34.8 % (37-47); Hemoglobin 11.2 g/dL (12.0-16.0)
--- NOTE | 2021-04-02 07:47 | Obstetrical Progress Note ---
Date of Service <Mary Ann Marti MD - Last Filed: 04/02/21 07:47> April 02, 2021 Assessment & Plan <Mary Ann Marti MD - Last Filed: 04/02/21 07:47> (1) Encounter for care and examination after delivery: POD 2: stable, routine postoperative management * patient voiding, ambulating without difficulty * pain well controlled on analgesia * tolerating regular diet * breast feeding * anticipate d/c today <Cindy Olguin DO - Last Filed: 04/02/21 08:29> (1) Encounter for care and examination after delivery: Subjective <Mary Ann Marti MD - Last Filed: 04/02/21 07:47> Post Kisha is a 35-year-old who is POD 2 following for breech presentation, SROM at 38.5 WGA. She reports feeling well overall this morning. Minimal pain well managed on analgesics. Voiding +. Tolerating meals overnight and able to ambulate some. Lochia is much improved this morning. Currently . Review of Systems Denies fever, chills, sweats Denies shortness of breath, difficulty breathing, chest pain, palpitations, chest pressure. Denies breast pain. Denies dysuria. Denies headache or changes in vision. Physical Exam <Mary Ann Marti MD - Last Filed: 04/02/21 07:47> General: Alert, oriented. No acute distress. Cardiac: Regular rate and rhythm, no murmurs/rubs/gallops. Respiratory: Clear to auscultation bilaterally a/p, no wheezes/rales/rhonchi. No increased work of breathing. Symmetrical chest rise. No respiratory distress. Abdomen: Soft, nontender, nondistended. Bowel sounds present. Uterus: Uterine fundus firm, palpable 1 cm below umbilicus. Surgical scar clean and healing well. Lower Extremities: No lower extremity edema or swelling. No deep calf pain. Amrita's negative bilaterally. Results & Data ([facility]) <Mary Ann Marti MD - Last Filed: 04/02/21 07:47> Vital Signs (Past 12 Hours) Vital Signs Temp Pulse Resp BP 04/01/21 23:05 37.1 C 73 14 120/79 04/01/21 20:00 37.1 C 76 16 117/79 <Cindy Olguin DO - Last Filed: 04/02/21 08:29> Co-Signing Physician Notes Resident Physician Supervision Note: I interviewed and examined the patient. Discussed with Dr. Marti and agree with findings and plan as documented in the note. Any exceptions or clarifications are listed here: POD#2 doing well, desires DC home. Reviewed /postop instructions, followup 6w in office. Rx #10 tabs percocet sent to pharmacy. Documented By: Cindy Olguin DO Resident Activity Tracking <Mary Ann Marti MD - Last Filed: 04/02/21 07:47> Resident Involvement: Resident Care Provided Care Provided: OB Delivery
[2021-04-02] MEDS: IBUPROFEN 600 MG TAB PO PRN (09:11)
[2021-04-02] MEDS: DOCUSATE SODIUM 100 MG CAP PO SCH (09:41)
[2021-04-02] MEDS: FERROUS SULFATE 325 MG TAB PO SCH (09:41)
[2021-04-02] MEDS: SIMETHICONE 80 MG CHEW PO SCH (09:41)
[2021-04-02] MEDS: PRENATAL VITAMIN 1 TAB PO SCH (09:41)
[2021-04-02] MEDS ORDERED: bisacodyL 10 MG SUPP PR PRN (16:55)
--- NOTE | 2021-04-04 13:42 | Discharge Summary ---
Date of Service April 04, 2021 Admission HPI Per Admitting Provider 35 y/o at 38 5/7 wga w/ KIANNA 04/09 by LMP who presents w/ c/o LOF beginning at 1130. Had big gush while on the phone with a patient, soaked 2 diapers in a few hours. +FM and some ctx after, denies VB PNI: Breech A2GDM - 03/15 EFW 91%, currently on 60u NPH AMA Past [employer] Hx: G1 2016 38 wks G2 2019 SAB G3 current Menarche 10, q28d cycles 01/2020 neg cotest Denies hx STIs Admission Exam (Per Admitting) Constitutional WD/WN, vitals as above Respiratory normal respiratory effort; no respiratory distress and no labored breathing Genitourinary OB Exam Abdomen: + breech (confirmed by US) Manual OB Exam: + cervical dilation + 2 cm, + cervical effacement + 50%, + station + -2 and + amniotic fluid (+nitrazine, pooling, ferning) + clear OB Exam Monitor Tracing: + external FHT monitor used, + external uterine monitor used (q7) and + category I (125/mod/+accel/-decel) Discharge Data Consultations 03/31/21 13:38 Consult Anesthesiology Stat Procedures Performed Operation Date: 03/31/21 14:30 Actual Procedures p Section in LD; Live male child at 1612 (Main OR #3)(Bilateral) - Sofi Red MD Operation Date: 04/04/21 07:30 <No data on this case meets the specified criteria> Hospital Course (1) Gestational diabetes: (2) Breech presentation: 35 y/o at 38 5/7 wga presented with spontaneous rupture of membranes and breech presentation. has otherwise been complicated by A2GDM. BG was normal on admission. Consent was reviewed and signed for above listed procedure, see operative report for details. Postoperative course was uncomplicated and she was discharged home on POD2 Coding Level of Care Code None Diagnoses Gestational diabetes O24.419 Breech presentation O32.1XX0
== END 2021-04-02 13:30 | disposition home or self-care (01) | DRG 787 ==
LOC: 4S1 13:07 → 4S2 15:47 → EDSTATUS 04-04 07:30